=== PATIENT | male | born 1990 | race Caucasian/White ===

== ENCOUNTER 2016-09-27 01:00 | Emergency (ER) | payer OTHER ==
[~2016-09-27] VITALS: Ht 180.3 cm; Wt 90.7 kg
[2016-09-27 01:07] VITALS: BP 137/88
[2016-09-27] MEDS ORDERED: KEFLEX500 MG ORAL (01:39)
[2016-09-27] MEDS ORDERED: IBUPROFEN600 MG ORAL (01:39)
[2016-09-27] MEDS ORDERED: BACTRIM DS TAB1 EAC1 ORAL (01:39)
[2016-09-27] MEDS ORDERED: Cephalexin 500mg cap ORAL ONE (01:45)
[2016-09-27] MEDS ORDERED: Bactrim DS (160mg/800mg) tab ORAL ONE (01:45)
[2016-09-27 01:47] VITALS: BP 130/84
--- NOTE | 2016-09-27 05:02 | Emergency Room Report ---
History of Present Illness General Chief Complaint: Skin Rash/Abscess Source: Patient Present Illness HPI 26-year-old male presents to ED with pain and swelling to right arm x5 days. States that he injected drugs into his right arm approximately 5 days ago and since then has noted pain and swelling to the right arm. Pain is throbbing, 8/ 10, nonradiating. States that there was a lot of redness and pain to the right elbow which has since improved. Denies any fevers or chills. No other aggravating or relieving factors. Denies any other associated symptoms Allergies: Coded Allergies: No Known Allergies (Unverified , 09/27/16) Patient History Past Medical History: none Past Surgical History: none Pertinent Family History: none Social History: Reports: drug use Immunizations: UTD Reviewed Nursing Documentation: PMH: Agreed, PSxH: Agreed Nursing Documentation-PMH Past Medical History: No History, Except For Review of Systems All Other Systems: negative except mentioned in HPI Physical Exam Vital Signs Date Time Temp Pulse Resp B/P Pulse Ox O2 Delivery O2 Flow Rate FiO2 09/27/16 01:07 98.2 77 16 137/88 100 Room Air Sp02 EP Interpretation: reviewed, normal General Appearance: no apparent distress, alert, GCS 15, non-toxic Head: normocephalic Eyes: bilateral eye PERRL, bilateral eye normal inspection ENT: normal ENT inspection Neck: full range of motion Respiratory: normal inspection Cardiovascular #1: normal inspection Gastrointestinal: normal inspection Rectal: deferred Genitourinary: no CVA tenderness Musculoskeletal: back normal, gait/station normal, normal range of motion, non- tender Neurologic: alert, oriented x3, responsive, motor strength/tone normal, sensory intact, speech normal Psychiatric: normal inspection Skin: other - 3x3cm area of fluctuation/induration to antecubital fossa R arm. surrounding erythema/induration Lymphatic: normal inspection Procedures Incision and Drainage Incision and Drainage : Consent: Verbal Blade Size: 11 I & D Procedure: betadine prep, sterile drapes applied, sterile dressing applied Wound Location: upper extremity - R antecubital fossa Wound's Depth, Shape: other - abscess Wound Explored: clean Splint Applied?: No Sling Applied?: No Patient Tolerated: Well Complications: None Medical Decision Making Diagnostic Impression: Primary Impression: Abscess Additional Impression: Drug abuse ER Course Hospital Course 26-year-old male presents to ED with pain and swelling to the right arm status post injecting drugs Clinical course Patient placed on stretcher. After initial history, physical exam reveals a young male in no acute distress. On exam there is a area of fluctuance and induration to the right antecubital fossa. Consistent with an abscess. Patient appears well and nontoxic. Afebrile. Using scalpel I was able to incise the abscess and drain copious amounts of purulent/bloody discharge. Patient tolerated procedure without difficulty. Dressing is applied. Patient given Keflex and Bactrim in ED Diagnosis - abscess, drug abuse Stable and discharged to home with prescription for Motrin, bactrim, Keflex. wound Care instructions given. Followup with PMD. Return to ED if any signs of infection develop Last Vital Signs Date Time Temp Pulse Resp B/P Pulse Ox O2 Delivery O2 Flow Rate FiO2 09/27/16 01:47 98.2 80 16 130/84 100 Room Air Status: improved Disposition: HOME, SELF-CARE Condition: Stable Scripts Trimethoprim/Sulfamethoxazole 160/800* (BACTRIM DS TABLET*) 1 Each Tablet 1 TAB ORAL Q12H, #14 TAB 0 Refills Prov: AGNES CARLIN M.D. 09/27/16 Cephalexin* (KEFLEX*) 500 Mg Capsule 500 MG ORAL Q6H, #28 CAP 0 Refills Prov: AGNES CARLIN M.D. 09/27/16 Ibuprofen* (MOTRIN*) 600 Mg Tablet 600 MG ORAL Q8H Y for For Pain, #30 TAB 0 Refills Prov: AGNES CARLIN M.D. 09/27/16 Referrals: NOT CHOSEN ALVARO/,REFERRING (PCP) Patient Instructions: Abscess AGNES CARLIN M.D. September 27, 2016 05:02
== END 2016-09-27 01:48 | disposition home or self-care (01) ==
LOC: EMR 01:45
DX: L02.413 Cutaneous abscess of right upper limb (principal); F19.10 Other psychoactive substance abuse, uncomplicated
CPT/HCPCS: 10060